=== PATIENT | female | born 1985 | race Caucasian/White ===

== ENCOUNTER 2019-12-28 05:15 | Inpatient (IN) | payer BC, OTHER ==
[2019-12-28] MEDS ORDERED: LIDOCAINE 0.5% (PF) 5 MG/ML (50 ML SDV) SQ PRN (06:21)
[2019-12-28] MEDS ORDERED: TERBUTALINE 1 MG/ML VIAL SQ PRN (06:21)
[2019-12-28] MEDS ORDERED: CARBOPROST TROMETHAMINE 250 MCG/ML 1 ML AMP IM PRN (06:21)
[2019-12-28] MEDS ORDERED: METHYLERGONOVINE 0.2 MG/ML 1 ML AMP IM PRN (06:21)
[2019-12-28] MEDS ORDERED: OXYTOCIN 10 UNIT/ML 1 ML VIAL IM PRN (06:21)
[2019-12-28] MEDS ORDERED: LACTATED RINGERS 1,000 ML IV SCH (06:30)
[2019-12-28 06:47] LABS: Basophils # (A) 0.1 k/uL (0-0.2); Basophils % (A) 1 %; Eosinophils # (A) 0.1 k/uL (0-0.7); Eosinophils % (A) 1 %; HCT 37.9 % (34.0-46.0); HGB 11.7 gm/dL (11.4-16.0); Hypochromasia Slight; Lymphocytes # (A) 2.6 k/uL (1.0-4.8); Lymphocytes % (A) 25 %; MCH 24.4 pg (25.0-35.0); MCHC 30.7 g/dL (31.0-37.0); MCV 79.4 fL (80.0-100.0); Mean Platelet Volume 10.3; Monocytes # (A) 0.6 k/uL (0-1.0); Monocytes % (A) 6 %; Neutrophils # (A) 6.8 k/uL (1.3-7.7); Neutrophils % (A) 66 %; Platelet Count 218 k/uL (150-450); RBC 4.77 m/uL (3.80-5.40); WBC 10.3 k/uL (3.8-10.6)
[2019-12-28] MEDS: LACTATED RINGERS 1,000 ML IV SCH ×2 (07:10→20:42)
[2019-12-28] MEDS ORDERED: ePHEDrine SULFATE/0.9% NACL/PF 50 MG/5 ML SYRINGE IV ONE (07:16)
[2019-12-28] MEDS ORDERED: SODIUM CHLORIDE 0.9% 100 ML BAG ONE (07:16)
[2019-12-28] MEDS ORDERED: fentaNYL (PF) 50 MCG/ML 5 ML AMP ONE (07:16)
[2019-12-28] MEDS ORDERED: ROPIVACAINE 5MG/ML 20ML VIAL ONE (07:16)
[2019-12-28] MEDS ORDERED: ONDANSETRON 4 MG/2 ML VIAL IVP STA (09:12)
[2019-12-28] MEDS ORDERED: LANOLIN CREAM 5 GM TUBE TOPICAL PRN (12:04)
[2019-12-28] MEDS ORDERED: ACETAMINOPHEN TAB 325 MG TAB PO PRN (12:04)
[2019-12-28] MEDS ORDERED: SIMETHICONE 80 MG CHEWABLE PO PRN (12:04)
[2019-12-28] MEDS ORDERED: HYDROCORTISONE 2.5% RECTAL CREAM 30 GM TUBE RECTAL PRN (12:04)
[2019-12-28] MEDS ORDERED: diphenhydrAMINE 25 MG CAP PO PRN (12:04)
[2019-12-28] MEDS ORDERED: HYDROcodone/APAP 7.5-325MG 1 EACH TAB PO PRN (12:04)
[2019-12-28] MEDS ORDERED: BENZOCAINE/MENTHOL SPRAY 1 GM/SPRAY AEROSOL TOPICAL PRN (12:04)
[2019-12-28] MEDS ORDERED: diphenhydrAMINE 50 MG/ML 1 ML VIAL IVP PRN ×2 (12:04)
[2019-12-28] MEDS ORDERED: diphenhydrAMINE 50 MG CAP PO PRN (12:04)
[2019-12-28] MEDS ORDERED: HYDROcodone/APAP 5-325MG 1 EACH TAB PO PRN (12:04)
[2019-12-28] MEDS ORDERED: ZOLPIDEM 5 MG TAB PO PRN (12:04)
--- NOTE | 2019-12-28 12:10 | P.HPOB ---
History of Present Illness H&P Date: 12/28/19 Chief Complaint: 40-0/7 weeks, labor The patient is a 34-year-old 4 para 2012 admitted at 40-0/7 weeks as established by last menstrual period and confirmed by second trimester ultrasound. She is admitted in early labor with all signs reassuring having changed her cervix in triage. Her has been essentially uncomplicated though she is rubella nonimmune. She was found early in the to have a positive test for chlamydia which was treated and cured. Group B strep status is negative. Obstetrical history: 4 para 201-2 term vaginal deliveries without complications and one early miscarriage not requiring D&C. Current statistics are listed in history present illness. EDC of 12/28/2019 was established by last menstrual period and confirmed by second trimester ultrasound. Laboratory workup demonstrates a blood type of O+ with a negative antibody screen. Rubella status is nonimmune. Remainder of laboratory workup was within normal limits. One hour Glucola is normal and group B strep status is negative. Gynecologic history: Essentially unremarkable aside from the positive chlamydia screen noted at the initial OB visit which was treated and cured. Review of Systems Review of systems is confined to history of present illness. Past Medical History Past Medical History: Asthma Additional Past Medical History / Comment(s): sports induced History of Any Multi-Drug Resistant Organisms: None Reported Past Surgical History: Tonsillectomy Past Anesthesia/Blood Transfusion Reactions: No Reported Reaction Past Psychological History: Anxiety Additional Psychological History / Comment(s): medicated before Smoking Status: Never smoker Past Alcohol Use History: None Reported Past Drug Use History: None Reported - Past Family History Mother Family Medical History: No Reported History Medications and Allergies Home Medications Medication Instructions Recorded Confirmed Type No Known Home Medications 12/28/19 12/28/19 History Allergies Allergy/AdvReac Type Severity Reaction Status Date / Time Penicillins Allergy Rash/Hives Verified 12/28/19 05:27 shellfish derived [Shellfish] Allergy Rash/Hives Verified 12/28/19 05:27 Exam Vital Signs Temp Pulse Resp BP Pulse Ox 12/28/19 11:57 83 15 111/64 98 12/28/19 11:42 97.5 F L 94 15 107/59 98 12/28/19 05:48 96.8 F L 96 16 115/86 100 Intake and Output 12/27/19 12/28/1912/27/20 22:59 06:59 14:59 Other: Weight 75.296 kg In general, this is a well-developed, well-nourished white female in no acute di stress. Her heart has a regular rhythm and rate without murmur. Her lungs are clear to auscultation bilaterally in all vasquez. Her abdomen is gravid, nondistended, has normal active bowel sounds, soft, nontender, and without any palpable masses aside from uterine fundus. Her extremities without any cyanosis, clubbing, or edema and are nontender to palpation bilaterally. Digital cervical examination at the time of my first exam found her cervix to be approximately 6-7 cm dilated, 80% effaced, with the vertex in presentation at -2-3 station. Artificial rupture of membranes is carried out demonstrating clear fluid. Results Result Diagrams: 12/28/19 06:40 Abnormal Lab Results - Last 24 Hours (Table) 12/28/19 Range/Units 06:40 MCV 79.4 L (80.0-100.0) fL MCH 24.4 L (25.0-35.0) pg MCHC 30.7 L (31.0-37.0) g/dL Assessment and Plan (1) Active labor at term Current Visit: Yes Status: Acute Code(s): [id number] - SNOMED Code(s): 57632544 Plan: The patient is admitted for active management of labor. She has undergone artificial rupture of membranes and close maternal and surveillance [facility] along with expectant management. She has had an epidural catheter placed for analgesia.
--- NOTE | 2019-12-28 12:12 | P.PROBDLV ---
Vaginal Delivery Note - . Vaginal Delivery Note: The patient is a 34-year-old 4 para 2011 admitted at 40-0/7 weeks by good dating parameters. She is admitted in early active labor with all signs reassuring. Her has been uncomplicated though she is rubella nonimmune and group B strep status is negative. On labor and delivery, she had an epidural catheter placed for analgesia. She then later underwent artificial rupture of membranes after which time she progressed to complete fairly quickly. She then pushed over the course of approximately 40 minutes to a normal spontaneous vaginal delivery of a viable 6 lbs. 10 oz. baby girl with Apgars of 9 at 1 minute and 9 at 5 minutes delivered in the right occiput anterior position. The placenta was delivered spontaneously, intact, and grossly normal with a grossly normal three-vessel cord inserted approximately 2 cm from the margin of the placental disc. There was a very small secondary midline perineal laceration which was slightly more than a deep skin split which was repaired in standard fashion using 3-0 chromic catgut without difficulty. Estimated blood loss for the case was approximately 150 mL. There are no Applications. All sponge, instrument, and needle counts were correct. Both mother and infant are resting comfortably in recovery.
[2019-12-28] MEDS ORDERED: OXYTOCIN 20 UNITS/1000 ML NS 1,000 ML IV SCH (12:15)
[2019-12-28] MEDS: IBUPROFEN 600 MG TAB PO PRN ×2 (12:25→20:04)
--- NOTE | 2019-12-28 12:55 | P.MSEPDOC ---
Presenting Problems - Arrival Data Date of Arrival on Unit: 12/28/19 Time of Arrival on Unit: 06:25 Mode of Transport: Wheelchair - Complaint OB-Reason for Admission/Chief Complaint: Possible Onset of Labor Comment: cntrx q5 mins since 0 Medical History - Information : 4 Para: 2 Term: 2 : 0 Abortions: Spontaneous or Elective: 1 Number of Living Children: 2 - Gestational Age Gestational Age by TARIQ (wks/days): 40 Weeks and 0 Days Review of Systems - Review of Systems Constitutional: No problems Breast: No problems ENT: No problems Cardiovascular: No problems Respiratory: No problems Gastrointestinal: No problems Genitourinary: No problems Musculoskeletal: No problems Neurological: No problems Skin: No problems Vital Signs - Temperature Temperature: 97.5 F Temperature Source: Temporal Artery Scan - Pulse Right Pulse Rate: 70 Pulse Assessment Method: Automatic Cuff - Respirations Respiratory Rate: 15 O2 Sat by Pulse Oximetry: 98 - Blood Pressure Right Arm Blood Pressure: 109/57 Blood Pressure Mean: 74 Blood Pressure Source: Automatic Cuff Medical Screen Scoring (Pre) - Cervical Exam Dilation: 4-7 cm = 2 Effacement: More than 50% = 2 Membranes: Intact - Uterine Contractions Frequency: > or = 36 weeks =2 Duration: > 40 seconds = 2 Intensity: N/A - Maternal Vital Signs Maternal Temperature: N/A Maternal Blood Pressure: N/A Signs of Preeclampsia: N/A Maternal Respirations: N/A - Maternal Trauma Maternal Trauma: N/A - Assessment - Baby A Baseline FHR: 130 Heart Rate - NICHD Category: Category I (Normal) = 0 NST: Reactive - Total Score - Baby A Total Score - Baby A: 8 - Total Score - Baby B Total Score - Baby B: 8 - Total Score - Baby C Total Score - Baby C: 8 - Level of Risk - Baby A Level of Risk - Baby A: Medium (6-9) - Level of Risk - Baby B Level of Risk - Baby B: Medium (6-9) - Level of Risk - Baby C Level of Risk - Baby C: Medium (6-9) Physician Notification (Pre) - Physician Notified Physician Notified Date: 12/28/19 Physician Notified Time: 05:42 - Notification Comment Comment: Reported on pts hx, c/o cntrx q5 min since 0400. reported on fhts, cntrx pattern, SVE in office and SVE on admission. orders to keep in triage, recheck after [address] Olmedo at home. Reported on pts c/o pain becoming more intense, repeat SVE at this time, cervical change. Orders to admit for labor, start IV, may have epidural, check after epidural. call when needed. Disposition - Disposition OB Disposition: Admit, LDRP Suite Transferred to:: st 11 I agree with the RN Medical Screening Exam: Yes Risk & Benefit of care provided described in d/c instruction: Yes Diagnosis: ENCOUNTER FOR FULL-TERM UNCOMPLICATED DELIVERY
[2019-12-28] MEDS ORDERED: MEASLES-MUMPS-RUBELLA VACC/PF 12,500 UNIT/0.5 ML VIAL SQ ONE (14:18)
[2019-12-28] MEDS: SENNOSIDES-DOCUSATE SODIUM 1 EACH TAB PO SCH (20:04)
[2019-12-29 03:03] VITALS: RESP 16
[2019-12-29] MEDS: IBUPROFEN 600 MG TAB PO PRN (05:15)
--- NOTE | 2019-12-29 08:03 | P.DS ---
Providers Date of admission: 12/28/19 06:20 Expected date of discharge: 12/29/19 Attending physician: Natalie Romero Primary care physician: Natalie Romero - Discharge Diagnosis(es) (1) Active labor at term Current Visit: Yes Status: Acute (2) Normal spontaneous vaginal delivery Current Visit: Yes Status: Acute (3) Perineal laceration during delivery Current Visit: Yes Status: Acute (4) Rubella non-immune status, antepartum Current Visit: Yes Status: Acute Hospital Course: This is a 34-year-old 4 now para 3013 woman who was admitted at 40-0/7 weeks gestation in spontaneous active labor. She had an uncomplicated . Following admission she received an epidural anesthetic. She underwent artificial rupture of membranes. She had an unremarkable progression to complete cervical dilation and went on to deliver a liveborn female infant. Weight was 6 lbs. 10 oz., Apgars 9 and 9. Small second-degree midline laceration that was repaired. Her course was unremarkable. By day #1 she was ambulating and voiding without difficulty. She had decreasing lochia. Her vital signs are stable. was doing well. She was therefore discharged home on day #1 with routine instructions for care and follow-up. Patient Condition at Discharge: Good Plan - Discharge Summary New Discharge Prescriptions: No Action No Known Home Medications Discharge Medication List No Known Home Medications 12/28/19 [History] Follow up Appointment(s)/Referral(s): Natalie Romero MD [Primary Care Provider] - 6 Weeks Activity/Diet/Wound Care/Special Instructions: Follow-up in the office in 6 weeks . Call with any concerning signs or symptoms including heavy vaginal bleeding, severe abdominal pain, fever greater than 101, swelling or redness of the lower extremities, foul vaginal discharge, or signs of depression. Nothing in the vagina for 6 weeks after delivery, specifically no intercourse. May use [id number] ibuprofen and/or Tylenol as needed for pain. Discharge Disposition: HOME SELF-CARE
[2019-12-29 08:43] VITALS: BP 101/71; PULSE 72; TEMP 98.3
[2019-12-29] MEDS: SENNOSIDES-DOCUSATE SODIUM 1 EACH TAB PO SCH (09:41)
== END 2019-12-29 12:54 | disposition home or self-care (01) | DRG 807 ==
LOC: FBPOP 05:15 → 4FBP 06:20
PROVIDERS: ADMIT Obstetrics & Gynecology; ATTEND Obstetrics & Gynecology
PROC: 10907ZC Drainage of Amniotic Fluid, Therapeutic from Products of Conception, Via Natural or Artificial Opening (ICD-10-PCS; principal; 2019-12-28)
PROC: 10E0XZZ Delivery of Products of Conception, External Approach (ICD-10-PCS; principal; 2019-12-28)
PROC: 0KQM0ZZ Repair Perineum Muscle, Open Approach (ICD-10-PCS; principal; 2019-12-28)
DX: O99.52 Diseases of the respiratory system complicating childbirth (principal); Z37.0 Single live birth; J45.909 Unspecified asthma, uncomplicated; O70.1 Second degree perineal laceration during delivery; O99.344 Other mental disorders complicating childbirth; F41.9 Anxiety disorder, unspecified; Z3A.40 40 weeks gestation of pregnancy
CPT/HCPCS: 59025; 85025; 86850; 86900; 86901; 90471; 90707; 99213

== ENCOUNTER 2021-05-14 11:41 | Emergency (ER) | payer OTHER ==
[2021-05-14] MEDS ORDERED: ONDANSETRON 4 MG/2 ML VIAL IVP STA (16:53)
[2021-05-14] MEDS ORDERED: SODIUM CHLORIDE 0.9% 1,000 ML IV ONE (16:53)
--- NOTE | 2021-05-14 17:04 | ED ---
General Adult HPI - General Chief complaint: Upper Respiratory Infection Stated complaint: R/O PE Source: patient Mode of arrival: ambulatory Limitations: no limitations - History of Present Illness Initial comments: 36 year-old female patient presents to the emergency department for evaluation of shortness of breath, cough, and congestion. States she has tested negative for COVID twice. Has taken a z-gina and started steroids, had mild improvement then worsened again. Was seen today and had chest xray, provider saw "wedged shaped area of clouding on xray" and was concerned she may have a blood clot. Patient denies any leg swelling or pain. Denies use of hormonal medications. Denies history of smoking. Denies any recent long car rides. Denies history of or family history of blood clot. She has had intermittent fevers. Reports persistent cough. Reports some chest tightness. Denies any pleuritic type pain. - Related Data Home Medications Medication Instructions Recorded Confirmed Sertraline [Zoloft] 100 mg PO DAILY PRN 05/14/21 05/14/21 Previous Rx's Medication Instructions Recorded Dexamethasone 6 mg PO DAILY #9 tablet 05/14/21 Ondansetron [Zofran ODT] 4 mg PO Q8HR PRN #10 tab 05/14/21 guaiFENesin-DM 600/30MG [Mucinex 1 each PO Q12HR #10 tab 05/14/21 Dm] Famotidine [Pepcid] 20 mg PO HS #30 tablet 05/15/21 Allergies Allergy/AdvReac Type Severity Reaction Status Date / Time Penicillins Allergy Rash/Hives Verified 05/14/21 18:33 shellfish derived [Shellfish] Allergy Rash/Hives Verified 05/14/21 18:33 Review of Systems ROS Statement: Those systems with pertinent positive or pertinent negative responses have been documented in the HPI. ROS Other: All systems not noted in ROS Statement are negative. Past Medical History Past Medical History: Asthma Additional Past Medical History / Comment(s): sports induced History of Any Multi-Drug Resistant Organisms: None Reported Past Surgical History: Tonsillectomy Past Anesthesia/Blood Transfusion Reactions: No Reported Reaction Past Psychological History: Anxiety Smoking Status: Never smoker Past Alcohol Use History: None Reported Past Drug Use History: None Reported - Past Family History Mother Family Medical History: No Reported History General Exam Limitations: no limitations General appearance: alert, in no apparent distress, other (A well-developed, well-nourished adult female in mild distress.) ENT exam: Present: normal exam, normal oropharynx, mucous membranes moist Respiratory exam: Present: normal lung sounds bilaterally, other (Tachypnea). Absent: respiratory distress, wheezes, rales, rhonchi, stridor Cardiovascular Exam: Present: normal rhythm, tachycardia, normal heart sounds. Absent: systolic murmur, diastolic murmur, rubs, gallop, clicks GI/Abdominal exam: Present: soft, normal bowel sounds. Absent: distended, tenderness, guarding, rebound, rigid Neurological exam: Present: alert, oriented X3, CN II-XII intact Psychiatric exam: Present: normal affect, normal mood Skin exam: Present: warm, dry, intact, normal color. Absent: rash Course Vital Signs 05/14/21 05/14/21 05/14/21 14:20 19:36 21:49 Temperature 98.7 F 99.2 F 99.9 F H Pulse Rate 115 H 107 H 105 H Respiratory 20 18 20 Rate Blood Pressure 97/61 107/58 96/60 O2 Sat by Pulse 96 95 95 Oximetry Medical Decision Making - Medical Decision Making 36 year-old female patient presented for evaluation of cough, congestion, and shortness of breath. She was sent in to rule out PE. Physical exam revealed equal lung sounds. Chest xray showed evidence for pneumonia. Labs were unremarkabl, d-dimer negative. She did test positive for COVID-19. She did agree to receive monoclonal antibodies. She tolerated the procedure well. Vitals initially showed elevated heart rate, O2 saturation 95%. She will be discharged with nausea medication, dexamethasone, and pepcid. He is instructed to follow- up with her primary care physician for recheck in 1-2 days. Return parameters were discussed in detail. She verbalizes understanding and agrees with this plan. My attending is Dr. Lange. - Lab Data Result diagrams: 05/14/21 17:20 05/14/21 17:20 Lab Results 05/14/21 05/14/21 05/14/21 Range/Units 17:20 17:20 17:20 WBC 4.1 (3.8-10.6) k/uL RBC 4.81 (3.80-5.40) m/uL Hgb 13.6 (11.4-16.0) gm/dL Hct 40.1 (34.0-46.0) % MCV 83.3 (80.0-100.0) fL MCH 28.2 (25.0-35.0) pg MCHC 33.8 (31.0-37.0) g/dL RDW 12.7 (11.5-15.5) % Plt Count 206 (150-450) k/uL MPV 8.5 Neutrophils % 64 % Lymphocytes % 27 % Monocytes % 8 % Eosinophils % 0 % Basophils % 1 % Neutrophils # 2.6 (1.3-7.7) k/uL Lymphocytes # 1.1 (1.0-4.8) k/uL Monocytes # 0.3 (0-1.0) k/uL Eosinophils # 0.0 (0-0.7) k/uL Basophils # 0.0 (0-0.2) k/uL D-Dimer 0.31 (<0.60) mg/L FEU Sodium 135 L (137-145) mmol/L Potassium 3.8 (3.5-5.1) mmol/L Chloride 100 (98-107) mmol/L Carbon Dioxide 26 (22-30) mmol/L Anion Gap 9 mmol/L BUN 11 (7-17) mg/dL Creatinine 0.58 (0.52-1.04) mg/dL Est GFR (CKD-EPI)AfAm >90 (>60 ml/min/1.73 sqM) Est GFR (CKD-EPI)NonAf >90 (>60 ml/min/1.73 sqM) Glucose 99 (74-99) mg/dL Calcium 8.4 (8.4-10.2) mg/dL Total Bilirubin 0.4 (0.2-1.3) mg/dL AST 43 H (14-36) U/L ALT 44 H (4-34) U/L Alkaline Phosphatase 49 (38-126) U/L Total Protein 6.8 (6.3-8.2) g/dL Albumin 3.8 (3.5-5.0) g/dL Urine HCG, Qual (Not Detectd) Coronavirus (PCR) (Not Detectd) 05/14/21 05/14/21 Range/Units 17:20 17:20 WBC (3.8-10.6) k/uL RBC (3.80-5.40) m/uL Hgb (11.4-16.0) gm/dL Hct (34.0-46.0) % MCV (80.0-100.0) fL MCH (25.0-35.0) pg MCHC (31.0-37.0) g/dL RDW (11.5-15.5) % Plt Count (150-450) k/uL MPV Neutrophils % % Lymphocytes % % Monocytes % % Eosinophils % % Basophils % % Neutrophils # (1.3-7.7) k/uL Lymphocytes # (1.0-4.8) k/uL Monocytes # (0-1.0) k/uL Eosinophils # (0-0.7) k/uL Basophils # (0-0.2) k/uL D-Dimer (<0.60) mg/L FEU Sodium (137-145) mmol/L Potassium (3.5-5.1) mmol/L Chloride (98-107) mmol/L Carbon Dioxide (22-30) mmol/L Anion Gap mmol/L BUN (7-17) mg/dL Creatinine (0.52-1.04) mg/dL Est GFR (CKD-EPI)AfAm (>60 ml/min/1.73 sqM) Est GFR (CKD-EPI)NonAf (>60 ml/min/1.73 sqM) Glucose (74-99) mg/dL Calcium (8.4-10.2) mg/dL Total Bilirubin (0.2-1.3) mg/dL AST (14-36) U/L ALT (4-34) U/L Alkaline Phosphatase (38-126) U/L Total Protein (6.3-8.2) g/dL Albumin (3.5-5.0) g/dL Urine HCG, Qual Not Detected (Not Detectd) Coronavirus (PCR) Detected A (Not Detectd) - Radiology Data Radiology results: report reviewed, image reviewed 2 view xray of the chest is obtained. Report reviewed, impression by Dr. Claudio shows right sided pneumonia. Disposition Clinical Impression: COVID-19, Viral pneumonia Disposition: HOME SELF-CARE Condition: Good Instructions (If sedation given, give patient instructions): Coronavirus Disease 2019 (COVID-19), Viral Pneumonia (ED) Additional Instructions: Tips to help you feel better: -Maintain adequate fluid intake - especially water. -Rest, you are healing your body will require extra sleep. -Eat even if you do not feel like it - broth, jello, toast are fine if you cannot eat full meals. -Take tylenol and motrin alternating (if you have no allergies or have not been instructed to avoid these medications) to help with body aches and fevers. -Obtain over the counter vitamin C, zinc, and vitamin D3. -Take medications as prescribed. -Quarantine minimum of 10 days. Follow-up with your primary care physician for recheck in 1-2 days. Return for any new, worsening, or concerning symptoms. Prescriptions: RX: Dexamethasone 6 mg PO DAILY #9 tablet guaiFENesin-DM 600/30MG [Mucinex Dm] 1 each PO Q12HR #10 tab Ondansetron [Zofran ODT] 4 mg PO Q8HR PRN #10 tab PRN Reason: Nausea Is patient prescribed a controlled substance at d/c from ED?: No Referrals: Ericka Kramer DO [Primary Care Provider] - 1-2 days Time of Disposition: 20:59
[2021-05-14 17:34] LABS: Basophils % (A) 1 %; Eosinophils % (A) 0 %; HCT 40.1 % (34.0-46.0); HGB 13.6 gm/dL (11.4-16.0); Lymphocytes # (A) 1.1 k/uL (1.0-4.8); Lymphocytes % (A) 27 %; MCH 28.2 pg (25.0-35.0); MCHC 33.8 g/dL (31.0-37.0); MCV 83.3 fL (80.0-100.0); Mean Platelet Volume 8.5; Monocytes # (A) 0.3 k/uL (0-1.0); Monocytes % (A) 8 %; Neutrophils # (A) 2.6 k/uL (1.3-7.7); Neutrophils % (A) 64 %; Platelet Count 206 k/uL (150-450); RBC 4.81 m/uL (3.80-5.40); RDW 12.7 % (11.5-15.5); WBC 4.1 k/uL (3.8-10.6)
[2021-05-14 17:52] LABS: ALT 44 U/L (4-34); AST 43 U/L (14-36); African American GFR (CKD) >90 (>60 ml/min/1.73 sqM); Albumin 3.8 g/dL (3.5-5.0); Alkaline Phosphatase 49 U/L (38-126); Anion Gap 9 mmol/L; Blood Urea Nitrogen 11 mg/dL (7-17); Calcium 8.4 mg/dL (8.4-10.2); Carbon Dioxide 26 mmol/L (22-30); Chloride 100 mmol/L (98-107); Glucose 99 mg/dL (74-99); Non-African American GFR(CKD) >90 (>60 ml/min/1.73 sqM); Sodium 135 mmol/L (137-145); Total Bilirubin 0.4 mg/dL (0.2-1.3); Total Protein 6.8 g/dL (6.3-8.2)
[2021-05-14 17:54] LABS: Potassium 3.8 mmol/L (3.5-5.1)
[2021-05-14] MEDS ORDERED: SOTROVIMAB (EUA) 500 MG in SODIUM CHLORIDE 0.9% 100 ML IVPB ONE (18:45)
[2021-05-14] MEDS ORDERED: SODIUM CHLORIDE 0.9% 50 ML IVPB ONE (18:45)
[2021-05-14] MEDS ORDERED: METOCLOPRAMIDE 5 MG/ML 2 ML VIAL IVP STA (19:44)
[2021-05-14] MEDS ORDERED: diphenhydrAMINE 50 MG/ML 1 ML VIAL IVP STA (19:44)
[2021-05-14] MEDS ORDERED: DEXAMETHASONE SOD PHOSPHATE 10 MG/ML 1 ML VIAL IVP STA (19:44)
--- NOTE | 2021-05-14 20:00 | XR ---
INDICATION: Patient age:Female; 36 years old; Reason for study: Cough/covid +; PHH. COMPARISON: None. TECHNIQUE: Frontal and lateral views of the chest. FINDINGS: Lungs/Pleura: Airspace opacities are present projecting over the spine on lateral view and in the rig ht midlung on frontal view. No evidence of pleural effusion or focal consolidation. Pulmonary vascularity: Unremarkable. Heart/mediastinum: Cardiomediastinal silhouette is unremarkable. Musculoskeletal: No acute osseous pathology. IMPRESSION: Right-sided pneumonia
[2021-05-14 21:52] VITALS: BP 96/60; PULSE 105; RESP 20; TEMP 99.9
== END 2021-05-14 21:52 | disposition home or self-care (01) ==
LOC: EC 11:41
DX: U07.1 COVID-19 (principal); J12.82 Pneumonia due to coronavirus disease 2019; F41.9 Anxiety disorder, unspecified; Z79.899 Other long term (current) drug therapy
CPT/HCPCS: 36415; 85379; 80053; 85025; 81025; 87635; 71046; 99285; 96374; 96375 ×3; 96361; J1200; J1100; J2765; J2405; Q0247

== ENCOUNTER → 2021-07-14 | Outpatient (CLI) | payer BC, OTHER ==
--- NOTE | 2021-07-14 14:08 | MR ---
EXAMINATION TYPE: MR knee RT wo con DATE OF EXAM: 07/14/2021 COMPARISON: Outside right knee x-ray June 22, 2021 HISTORY: Right knee pain with locking and swelling TECHNIQUE: Multiplanar, multisequence imaging of the right knee is performed without IV contrast. FINDINGS: MEDIAL MENISCUS: Anterior and posterior horns are intact without tear. LATERAL MENISCUS: Anterior and posterior horns are intact without tear. CRUCIATE LIGAMENTS: The anterior and posterior cruciate ligaments are intact and unremarkable. COLLATERAL LIGAMENTS: The medial collateral ligament and lateral collateral ligament complex are inta ct and unremarkable. EXTENSOR MECHANISM: Visualized quadriceps and patellar tendons are intact. EFFUSION: No significant suprapatellar joint effusion. POPLITEAL CYST: No popliteal/scott cyst. TRICOMPARTMENT SPACES: Tricompartment joint spaces are fairly well preserved. No significant spurring is seen. CARTILAGE: Tricompartmental articular cartilage is maintained. BONE MARROW SIGNAL: No focal abnormal marrow signal is appreciated. OTHER: No additional significant abnormality is appreciated. IMPRESSION: No meniscal or ligamentous tear is seen. Fairly unremarkable study.
== END | disposition home or self-care (01) ==
LOC: RADMRIMAIN 12:58
PROVIDERS: ATTEND Orthopaedic Surgery
DX: M25.561 Pain in right knee (principal)